=== PATIENT | male | born 1970 | race Caucasian/White ===

== ENCOUNTER 2022-08-25 11:13 | Emergency (ER) | payer OTHER ==
[~2022-08-25] VITALS: Ht 167.6 cm; Wt 84.8 kg
[2022-08-25 11:36] VITALS: BP 106/82
--- NOTE | 2022-08-25 12:05 | NUR ---
C/O LEG PAIN , LAT ASPECT , NO SOB.RECENT LONG DISTANCE ROAD TRIP DRIVING
[2022-08-25] MEDS ORDERED: IBUPROFEN 600 MG TAB PO ONE (12:20)
[2022-08-25] MEDS ORDERED: IBUP-2213 PO (13:45)
[2022-08-25 14:19] VITALS: BP 117/84
--- NOTE | 2022-08-25 14:19 | NUR ---
Patient discharged with v/s stable. Written and verbal after care instructions given. Patient alert, oriented and verbalized understanding of instructions. Ambulatory with steady gait. All questions addressed prior to discharge. ID band removed. Patient advised to follow up with PMD. Rx of Ibuprofen given. Opportunity to ask questions provided and answered.
== END 2022-08-25 14:19 | disposition home or self-care (01) ==
LOC: MED 11:13
DX: M79.662 Pain in left lower leg (principal); R03.0 Elevated blood-pressure reading, without diagnosis of hypertension; E78.5 Hyperlipidemia, unspecified; Z79.1 Long term (current) use of non-steroidal anti-inflammatories (NSAID)
CPT/HCPCS: 93971; 99284; Q0092